=== PATIENT | female | born 1965 | race Caucasian/White ===

== ENCOUNTER 2018-08-24 10:47 | Emergency (ER) | payer OTHER ==
[2018-08-24] MEDS: IBUPROFEN 800 MG TAB PO (12:25)
[2018-08-24] MEDS: HYDROCODONE/APAP (5/325) TAB PO (12:25)
[2018-08-24 12:53] LABS: TROPONIN-I < 0.012 ng/ml (0.000-0.120)
== END 2018-08-24 15:02 | disposition home or self-care (01) ==
LOC: E/R 10:47
DX: R07.89 Other chest pain (principal); E11.9 Type 2 diabetes mellitus without complications; Z79.84 Long term (current) use of oral hypoglycemic drugs
CPT/HCPCS: 36415; 84484; 93005; 99284-25